=== PATIENT | male | born 1990 | race Caucasian/White ===

== ENCOUNTER 2018-09-01 11:19 | Emergency (ER) | payer MEDICAID ==
[~2018-09-01] VITALS: Ht 177.8 cm; Wt 72.7 kg
[2018-09-01] MEDS ORDERED: SODIUM CHLORIDE 0.9% 1,000 ML IV ONE ×2 (12:00→13:00)
[2018-09-01] MEDS ORDERED: LORazepam 1 MG TABLET PO ONE (12:00)
[2018-09-01 12:15] LABS: BASOPHILS % (AUTO) 0.8 % (0.0-2.0); HEMOGLOBIN 15.1 g/dL (13.5-17.5); LYMPHOCYTES # (AUTO) 0.9 K/uL (1.0-4.8); LYMPHOCYTES % (AUTO) 21.3 % (22.0-44.0); MEAN CORPUSCULAR HEMOGLOBIN 32.7 pg (26.0-34.0); MEAN CORPUSCULAR HGB CONC 34.3 G/dL (31.0-37.0); MEAN CORPUSCULAR VOLUME 95 fL (80-100); MONOCYTES # (AUTO) 0.4 K/uL (0.1-1.0); MONOCYTES % (AUTO) 9.7 % (2.0-9.0); NEUTROPHILS # (AUTO) 2.9 K/uL (1.8-7.7); NEUTROPHILS % (AUTO) 66.2 % (40.0-70.0); PLATELET COUNT (AUTO) 211 K/uL (150-450); RED BLOOD CELL COUNT(AUTO) 4.62 MIL/uL (4.50-5.90); RED CELL DISTRIBUTION WIDTH 14.3 % (11.5-14.5)
[2018-09-01] MEDS ORDERED: ONDANSETRON HCL 4 MG/2 ML VIAL IVP ONE (12:30)
[2018-09-01 12:32] LABS: ALANINE AMINOTRANSFERASE 87 U/L (12-78); ALBUMIN 3.2 g/dL (3.4-5.0); ALKALINE PHOSPHATASE 133 U/L (46-116); ANION GAP 10 mmol/L (8-16); ASPARTATE AMINOTRANSFERASE 103 U/L (15-37); BILIRUBIN,TOTAL 0.5 mg/dL (0.1-1.0); CALCIUM, TOTAL 8.6 mg/dL (8.8-10.5); CARBON DIOXIDE 26 mmol/L (22-29); CHLORIDE 103 mmol/L (98-107); CREATININE 0.76 mg/dL (0.60-1.30); GLOMERULAR FILTR. RATE CALC > 60 mL/min (>60); GLUCOSE,RANDOM 87 mg/dL (70-110); LIPASE 110 U/L (73-393); POTASSIUM 3.8 mmol/L (3.5-5.1); SODIUM SERUM 139 mmol/L (136-145); TOTAL PROTEIN, SERUM 7.3 g/dL (6.4-8.2); UREA NITROGEN, BLOOD 5 mg/dL (7-18)
[2018-09-01 14:00] VITALS: BP 124/99
== END 2018-09-01 14:39 | disposition home or self-care (01) ==
LOC: EMS 11:37
DX: E86.0 Dehydration (principal); J40 Bronchitis, not specified as acute or chronic; F10.20 Alcohol dependence, uncomplicated; F17.210 Nicotine dependence, cigarettes, uncomplicated; R56.9 Unspecified convulsions; Y90.4 Blood alcohol level of 80-99 mg/100 ml
CPT/HCPCS: 71045; 80053; 83690; 85025; 93005; 96361; 96374; 99285; G0480; J2405; J7030